=== PATIENT | male | born 1945 | race Caucasian/White ===

== ENCOUNTER → 2016-09-20 | Outpatient (CLI) | payer MEDICARE, OTHER ==
[~2016-09-20] MED LIST: MESA0.37 PO; OMEP20CA5 PO; TADA5TAB11 PO
[2016-09-20 12:29] LABS: Basophils # (auto) 0.1 uL; Basophils % (auto) 1.1 % (0.0-2.0); DEFINITIVE VIEW TRANSMISSION; Eosinophils # (auto) 0.1 uL; Eosinophils % (auto) 2.8 % (0.0-7.0); Hematocrit 40.3 % (41.0-53.0); Hemoglobin 12.6 g/dL (13.5-17.5); Lymphocytes % (auto) 20.2 % (10.0-50.0); Mean Corpuscular Hemoglobin 22.3 pg (28.0-32.0); Mean Corpuscular Hgb Conc. 31.4 g/dL (32.0-36.0); Mean Corpuscular Volume 71.2 fL (80.0-100.0); Mean Platelet Volume 9.4 fL (7.4-10.4); Monocytes # (auto) 0.5 uL; Monocytes % (auto) 9.4 % (0.0-12.0); Neutrophils # (auto) 3.4 uL; Neutrophils % (auto) 66.5 % (37.0-80.0); Platelet Count (auto) 276 10^3/uL (140-450); Red Cell Distribution Width 18.3 % (11.6-16.0); White Blood Cell 5.1 10^3/uL (4.4-10.8)
[2016-09-20 12:38] LABS: Urine Bilirubin Negative (Negative); Urine Blood Negative /uL (Negative); Urine Color Yellow (Yellow); Urine Ketone Negative (Negative); Urine Nitrite Negative (Negative); Urine Urobilinogen Normal (Negative)
[2016-09-20 12:42] LABS: Anisocytosis Slight; Hypochromia Moderate; Microcytosis Moderate; Platelet Estimate Adequate
[2016-09-20 12:51] LABS: Urine Glucose 4+ mg/dL (Normal)
[2016-09-20 13:51] LABS: Albumin 3.8 g/dL (3.4-5.0); BUN/Creatinine Ratio 12.2; Bilirubin, Direct 0.1 mg/dL (0-0.2); Bilirubin, Total 0.4 mg/dL (0.2-1.0); Potassium 4.4 mmol/L (3.5-5.1)
== END | disposition home or self-care (01) ==
LOC: LAB 08:22
PROVIDERS: ATTEND Internal Medicine Cardiovascular Disease
DX: I10 Essential (primary) hypertension (principal); E78.00 Pure hypercholesterolemia, unspecified; K74.1 Hepatic sclerosis; E11.9 Type 2 diabetes mellitus without complications; R97.20 Elevated prostate specific antigen [PSA]; R53.81 Other malaise; E03.9 Hypothyroidism, unspecified; D64.9 Anemia, unspecified; E55.9 Vitamin D deficiency, unspecified; N39.0 Urinary tract infection, site not specified
CPT/HCPCS: 36415; 80048; 80061; 80076; 81003; 82306; 83036; 84153; 84439; 84443; 85025

== ENCOUNTER → 2017-03-24 | Outpatient (CLI) | payer MEDICARE, OTHER ==
[~2017-03-24] VITALS: Ht 180.3 cm; Wt 110.2 kg
[~2017-03-24] MED LIST changes: -OMEP20CA5 PO; +OMEP20CA74 PO
== END | disposition home or self-care (01) ==
LOC: Rad HDHVI 07:52
PROVIDERS: ATTEND Internal Medicine Cardiovascular Disease
DX: I11.0 Hypertensive heart disease with heart failure (principal); I25.10 Atherosclerotic heart disease of native coronary artery without angina pectoris; I50.9 Heart failure, unspecified; E78.00 Pure hypercholesterolemia, unspecified; E11.9 Type 2 diabetes mellitus without complications
CPT/HCPCS: 36415; 78452; 83036; 93017; 96374; A9500

== ENCOUNTER → 2017-05-24 | Outpatient (CLI) | payer MEDICARE, OTHER | END | disposition home or self-care (01) | LOC: Rad HDHVI 12:24 | PROVIDERS: ATTEND Internal Medicine Cardiovascular Disease | DX: J40 Bronchitis, not specified as acute or chronic (principal) | CPT/HCPCS: 71046 ==

== ENCOUNTER → 2017-09-23 | Outpatient (CLI) | payer MEDICARE, OTHER | END | disposition home or self-care (01) | LOC: Rad HDHVI 10:49 | PROVIDERS: ATTEND Internal Medicine Cardiovascular Disease | DX: I35.1 Nonrheumatic aortic (valve) insufficiency (principal); E11.9 Type 2 diabetes mellitus without complications; E78.00 Pure hypercholesterolemia, unspecified; I11.0 Hypertensive heart disease with heart failure; I50.9 Heart failure, unspecified; E03.9 Hypothyroidism, unspecified | CPT/HCPCS: 93306 ==

== ENCOUNTER → 2017-10-06 | Outpatient (CLI) | payer MEDICARE, OTHER ==
[~2017-10-06] VITALS: Ht 180.3 cm; Wt 111.1 kg
[2017-10-06 11:52] LABS: Basophils # (auto) 0.1 uL; Eosinophils # (auto) 0.2 uL; Hemoglobin 11.8 g/dL (13.5-17.5); Lymphocytes % (auto) 22.3 % (10.0-50.0); Mean Corpuscular Hemoglobin 21.4 pg (28.0-32.0); Monocytes # (auto) 0.5 uL; Monocytes % (auto) 11.9 % (0.0-12.0); Neutrophils # (auto) 2.6 uL; White Blood Cell 4.3 10^3/uL (4.4-10.8)
[2017-10-06 11:54] LABS: Basophils % (auto) 1.2 % (0.0-2.0); Eosinophils % (auto) 3.6 % (0.0-7.0); Hematocrit 38.2 % (41.0-53.0); Mean Corpuscular Hgb Conc. 30.9 g/dL (32.0-36.0); Mean Corpuscular Volume 69.4 fL (80.0-100.0); Nucleated Red Blood Cells % 0.6 %; Platelet Count (auto) 258 10^3/uL (140-450); Red Blood Cells 5.51 10^6/uL (4.5-5.90); Red Cell Distribution Width 18.5 % (11.8-14.3); Urine Blood Negative /uL (Negative); Urine Specific Gravity 1.016 (1.001-1.035)
[2017-10-06 12:13] LABS: Free T4 (Free Thyroxine) 0.92 ng/dL (0.89-1.76); Prostate Specific Antigen 0.27 ng/mL (0.0-4.0)
[2017-10-06 13:46] LABS: Potassium 4.3 mmol/L (3.5-5.1)
[2017-10-06 13:49] LABS: Albumin 3.8 g/dL (3.4-5.0); BUN/Creatinine Ratio 14.2; Bilirubin, Total 0.6 mg/dL (0.2-1.0); Calcium 9.1 mg/dL (8.5-10.1); Total Protein 8.1 g/dL (6.4-8.2)
== END | disposition home or self-care (01) ==
LOC: Rad HDHVI 08:24
PROVIDERS: ATTEND Internal Medicine Cardiovascular Disease
DX: Z00.01 Encounter for general adult medical examination with abnormal findings (principal); E11.9 Type 2 diabetes mellitus without complications; K52.9 Noninfective gastroenteritis and colitis, unspecified; L30.9 Dermatitis, unspecified; C61 Malignant neoplasm of prostate; E29.1 Testicular hypofunction; E03.9 Hypothyroidism, unspecified; E55.9 Vitamin D deficiency, unspecified; D51.9 Vitamin B12 deficiency anemia, unspecified; N39.0 Urinary tract infection, site not specified; R07.89 Other chest pain; R06.02 Shortness of breath
CPT/HCPCS: 36415; 78452; 80053; 80061; 81003; 82306; 82607; 83036; 84153; 84403; 84439; 84443; 85025; 93017; 96374; A9500

== ENCOUNTER → 2018-01-18 | Outpatient (CLI) | payer MEDICARE, OTHER ==
[2018-01-18 16:34] LABS: Alanine Aminotransferase 52 U/L (16-61); Albumin 3.9 g/dL (3.4-5.0); Alkaline Phosphatase 96 U/L (45-117); Anion Gap 6 (5-15); Aspartate Aminotransferase 39 U/L (15-37); BUN/Creatinine Ratio 11.9; Bilirubin, Direct < 0.1 mg/dL (0-0.2); Bilirubin, Total 0.4 mg/dL (0.2-1.0); Blood Urea Nitrogen 13 mg/dL (7-18); Calcium 9.6 mg/dL (8.5-10.1); Carbon Dioxide 24 mmol/L (21-32); Chloride 108 mmol/L (98-107); Cholesterol 251 mg/dL (< 200); GFR African American 86 mL/min; GFR Non-African American 71 mL/min; Glucose 72 mg/dL (74-106); HDL Cholesterol 42 mg/dL (40-59); LDL Cholesterol 173 mg/dL (< 100); Potassium 4.3 mmol/L (3.5-5.1); Sodium 138 mmol/L (136-145); Total Protein 8.3 g/dL (6.4-8.2); Triglycerides 252 mg/dL (< 150)
== END | disposition home or self-care (01) ==
LOC: LAB 12:03
PROVIDERS: ATTEND Internal Medicine Cardiovascular Disease
DX: E78.5 Hyperlipidemia, unspecified (principal); I10 Essential (primary) hypertension; K74.1 Hepatic sclerosis; E11.9 Type 2 diabetes mellitus without complications
CPT/HCPCS: 36415; 80048; 80061; 80076; 83036

== ENCOUNTER → 2018-07-18 | Outpatient (CLI) | payer MEDICARE, OTHER ==
[2018-07-18 12:12] LABS: Lymphocytes # (auto) 1.3 uL; Monocytes # (auto) 0.5 uL
[2018-07-18 12:15] LABS: Basophils # (auto) 0.1 uL; Basophils % (auto) 1.1 % (0.0-2.0); Eosinophils # (auto) 0.1 uL; Eosinophils % (auto) 2.5 % (0.0-7.0); Hematocrit 48.2 % (41.0-53.0); Hemoglobin 15.2 g/dL (13.5-17.5); Lymphocytes % (auto) 21.4 % (10.0-50.0); Mean Corpuscular Hemoglobin 24.7 pg (28.0-32.0); Mean Corpuscular Hgb Conc. 31.6 g/dL (32.0-36.0); Mean Corpuscular Volume 78.2 fL (80.0-100.0); Monocytes % (auto) 8.8 % (0.0-12.0); Neutrophils % (auto) 66.2 % (37.0-80.0); Nucleated Red Blood Cells % 0.4 %; Platelet Count (auto) 213 10^3/uL (140-450); Red Blood Cells 6.16 10^6/uL (4.5-5.90); Red Cell Distribution Width 19.9 % (11.8-14.3)
[2018-07-18 12:23] LABS: Albumin 3.7 g/dL (3.4-5.0); BUN/Creatinine Ratio 15.8; Calcium 8.9 mg/dL (8.5-10.1); Potassium 4.2 mmol/L (3.5-5.1)
[2018-07-18 12:24] LABS: Urine Blood Negative /uL (Negative); Urine Specific Gravity 1.022 (1.001-1.035)
[2018-07-18 12:28] LABS: Bilirubin, Total 0.5 mg/dL (0.2-1.0)
[2018-07-18 19:11] LABS: Prostate Specific Antigen 0.28 ng/mL (0.0-4.0)
== END | disposition home or self-care (01) ==
LOC: LAB 09:19
PROVIDERS: ATTEND Internal Medicine Cardiovascular Disease
DX: E55.9 Vitamin D deficiency, unspecified (principal); E03.9 Hypothyroidism, unspecified; E11.9 Type 2 diabetes mellitus without complications; E29.1 Testicular hypofunction; C61 Malignant neoplasm of prostate; D51.9 Vitamin B12 deficiency anemia, unspecified; N39.0 Urinary tract infection, site not specified
CPT/HCPCS: 36415; 80053; 80061; 81003; 82306; 82607; 83036; 84153; 84403; 84439; 84443; 85025

== ENCOUNTER → 2019-02-02 | Outpatient (CLI) | payer MEDICARE, BC | END | disposition home or self-care (01) | LOC: LAB 08:59 | PROVIDERS: ATTEND Internal Medicine Cardiovascular Disease | DX: E29.1 Testicular hypofunction (principal); E11.9 Type 2 diabetes mellitus without complications | CPT/HCPCS: 36415; 84403 ==

== ENCOUNTER → 2019-06-20 | Outpatient (CLI) | payer MEDICARE, BC ==
[2019-06-20 12:25] LABS: Basophils # (auto) 0.1 uL; Eosinophils # (auto) 0.1 uL; Lymphocytes # (auto) 1.3 uL; Monocytes # (auto) 0.7 uL
[2019-06-20 12:28] LABS: Basophils % (auto) 1.1 % (0.0-2.0); Hematocrit 36.8 % (41.0-53.0); Lymphocytes % (auto) 20.3 % (10.0-50.0); Mean Corpuscular Hemoglobin 19.6 pg (28.0-32.0); Mean Corpuscular Hgb Conc. 29.9 g/dL (32.0-36.0); Mean Corpuscular Volume 65.7 fL (80.0-100.0); Monocytes % (auto) 10.8 % (0.0-12.0); Neutrophils # (auto) 4.3 uL; Neutrophils % (auto) 65.8 % (37.0-80.0); Nucleated Red Blood Cells % 0.1 %; Platelet Count (auto) 325 10^3/uL (140-450); Red Blood Cells 5.59 10^6/uL (4.5-5.90); Red Cell Distribution Width 19.4 % (11.8-14.3); White Blood Cell 6.6 10^3/uL (4.4-10.8)
[2019-06-20 12:42] LABS: INR 1.12 (0.9-1.15); Partial Thromboplastin Time 25.5 sec (23.64-32.05)
[2019-06-20 12:55] LABS: Urine Blood Negative /uL (Negative); Urine Specific Gravity 1.033 (1.001-1.035)
[2019-06-20 13:20] LABS: BUN/Creatinine Ratio 10.7; Calcium 9.6 mg/dL (8.5-10.1)
== END | disposition home or self-care (01) ==
LOC: Rad HDHVI 08:57
PROVIDERS: ATTEND Internal Medicine Cardiovascular Disease
DX: Z01.812 Encounter for preprocedural laboratory examination (principal); N39.0 Urinary tract infection, site not specified; J98.4 Other disorders of lung; M47.814 Spondylosis without myelopathy or radiculopathy, thoracic region; R79.1 Abnormal coagulation profile; K51.90 Ulcerative colitis, unspecified, without complications; Z79.899 Other long term (current) drug therapy
CPT/HCPCS: 36415; 71046; 80048; 81003; 85025; 85610; 85730; 87086

== ENCOUNTER → 2019-07-30 | Outpatient (CLI) | payer MEDICARE, OTHER ==
[~2019-07-30] MED LIST changes: +CLOP75TA28 PO; +PANT40TA2 PO; +ROSU5TAB5 PO
== END | disposition home or self-care (01) ==
LOC: LAB 11:47
PROVIDERS: ATTEND Internal Medicine Cardiovascular Disease
DX: R94.4 Abnormal results of kidney function studies (principal)
CPT/HCPCS: 36415; 82565

== ENCOUNTER → 2019-08-01 | Outpatient (CLI) | payer MEDICARE, BC ==
[~2019-08-01] MED LIST changes: +IOHEXOL 350 MG/ML 100ML IJ ONE; +READI-CAT 2 (BARIUM SULF)(VANILLA SMOOTHIE) 450ML ONE
[2019-08-01 13:00] VITALS: BP 112/71
== END | disposition home or self-care (01) ==
LOC: Rad HDHVI 12:49
PROVIDERS: ATTEND Internal Medicine Cardiovascular Disease
DX: K43.5 Parastomal hernia without obstruction or gangrene (principal); K40.20 Bilateral inguinal hernia, without obstruction or gangrene, not specified as recurrent; I70.0 Atherosclerosis of aorta; N28.1 Cyst of kidney, acquired; E11.9 Type 2 diabetes mellitus without complications; M81.0 Age-related osteoporosis without current pathological fracture; M19.90 Unspecified osteoarthritis, unspecified site; G47.30 Sleep apnea, unspecified
CPT/HCPCS: 74177; 93306; G0463; Q9967

== ENCOUNTER → 2019-08-08 | Outpatient (CLI) | payer MEDICARE, BC ==
[~2019-08-08] VITALS: Ht 180.3 cm; Wt 91.6 kg
[~2019-08-08] MED LIST changes: +ADENOSINE 77 MG in GIVE UN-DILUTED 0 ML IV ONE; +ADENOSINE 90 MG/30 ML INJ IV ONE; -IOHEXOL 350 MG/ML 100ML IJ ONE; -READI-CAT 2 (BARIUM SULF)(VANILLA SMOOTHIE) 450ML ONE
== END | disposition home or self-care (01) ==
LOC: Rad HDHVI 09:32
PROVIDERS: ATTEND Internal Medicine Cardiovascular Disease
DX: I25.10 Atherosclerotic heart disease of native coronary artery without angina pectoris (principal); E11.9 Type 2 diabetes mellitus without complications; E78.00 Pure hypercholesterolemia, unspecified; M81.0 Age-related osteoporosis without current pathological fracture; M19.90 Unspecified osteoarthritis, unspecified site; G47.30 Sleep apnea, unspecified; Z87.891 Personal history of nicotine dependence
CPT/HCPCS: 78452; 93005; 96374; 96375; A9500; J0153

== ENCOUNTER → 2019-08-27 | Outpatient (CLI) | payer MEDICARE, BC ==
[~2019-08-27] MED LIST changes: -ADENOSINE 77 MG in GIVE UN-DILUTED 0 ML IV ONE; -ADENOSINE 90 MG/30 ML INJ IV ONE
[2019-08-27 15:59] LABS: Basophils # (auto) 0.1 10 ^3/uL (0-0.2); Eosinophils # (auto) 0.2 10 ^3/uL (0-0.8); Lymphocytes # (auto) 1.2 10 ^3/uL (0.4-5.4); Monocytes # (auto) 0.6 10 ^3/uL (0-1.3)
[2019-08-27 16:01] LABS: Eosinophils % (auto) 2.8 % (0.0-7.0); Hematocrit 32.8 % (41.0-53.0); Hemoglobin 9.7 g/dL (13.5-17.5); Lymphocytes % (auto) 17.9 % (10.0-50.0); Mean Corpuscular Hemoglobin 18.9 pg (28.0-32.0); Mean Corpuscular Hgb Conc. 29.5 g/dL (32.0-36.0); Monocytes % (auto) 9.3 % (0.0-12.0); Neutrophils # (auto) 4.6 10 ^3/uL (1.6-8.6); Nucleated Red Blood Cells % 0.2 %; Platelet Count (auto) 319 10^3/uL (140-450); Red Blood Cells 5.13 10^6/uL (4.5-5.90); Red Cell Distribution Width 20.9 % (11.8-14.3); White Blood Cell 6.6 10^3/uL (4.4-10.8)
[2019-08-27 16:07] LABS: Albumin 3.6 g/dL (3.4-5.0); Potassium 4.2 mmol/L (3.5-5.1)
[2019-08-27 16:11] LABS: BUN/Creatinine Ratio 14.8; Bilirubin, Total 0.3 mg/dL (0.2-1.0); Total Protein 8.4 g/dL (6.4-8.2)
== END | disposition home or self-care (01) ==
LOC: LAB 11:48
PROVIDERS: ATTEND Internal Medicine Cardiovascular Disease
DX: C19 Malignant neoplasm of rectosigmoid junction (principal)
CPT/HCPCS: 36415; 80053; 82378; 83615; 85025

== ENCOUNTER 2020-02-23 16:00 | Inpatient (IN) | payer MEDICARE, BC ==
[~2020-02-23] VITALS: Ht 180.3 cm; Wt 99.7 kg
[2020-02-23 17:00] LABS: Basophils # (auto) 0.1 10 ^3/uL (0-0.2); Basophils % (auto) 0.7 % (0.0-2.0); Eosinophils # (auto) 0.1 10 ^3/uL (0-0.8); Eosinophils % (auto) 1.5 % (0.0-7.0); Hematocrit 44.4 % (41.0-53.0); Hemoglobin 14.5 g/dL (13.5-17.5); Lymphocytes # (auto) 0.8 10 ^3/uL (0.4-5.4); Lymphocytes % (auto) 10.8 % (10.0-50.0); Mean Corpuscular Hemoglobin 28.2 pg (28.0-32.0); Mean Corpuscular Hgb Conc. 32.6 g/dL (32.0-36.0); Mean Corpuscular Volume 86.7 fL (80.0-100.0); Monocytes # (auto) 1.2 10 ^3/uL (0-1.3); Monocytes % (auto) 15.7 % (0.0-12.0); Neutrophils # (auto) 5.4 10 ^3/uL (1.6-8.6); Neutrophils % (auto) 71.3 % (37.0-80.0); Nucleated Red Blood Cells % 0.1 %; Platelet Count (auto) 131 10^3/uL (140-450); Red Blood Cells 5.12 10^6/uL (4.5-5.90); Red Cell Distribution Width 24.4 % (11.8-14.3); White Blood Cell 7.6 10^3/uL (4.4-10.8)
[2020-02-23 17:14] LABS: Albumin 3.2 g/dL (3.4-5.0); Amylase 67 U/L (25-115); Anion Gap 6 (5-15); Blood Urea Nitrogen 13 mg/dL (7-18); Calcium 9.4 mg/dL (8.5-10.1); Carbon Dioxide 26 mmol/L (21-32); Chloride 106 mmol/L (98-107); Glucose 181 mg/dL (74-106); Lipase 285 U/L (73-393); Magnesium 2.6 mg/dL (1.6-2.6); Potassium 4.5 mmol/L (3.5-5.1); Sodium 138 mmol/L (136-145)
[2020-02-23 17:17] LABS: INR 1.04 (0.9-1.15); Partial Thromboplastin Time 24.5 sec (23.0-31.2)
[2020-02-23 17:20] LABS: Alanine Aminotransferase 89 U/L (16-61); Alkaline Phosphatase 289 U/L (45-117); Aspartate Aminotransferase 116 U/L (15-37); BUN/Creatinine Ratio 14.3; Bilirubin, Total 0.6 mg/dL (0.2-1.0); GFR African American 105 mL/min; GFR Non-African American 87 mL/min
[2020-02-23] MEDS ORDERED: SODIUM CHLORIDE 0.9% 1,000 ML IV ONE (17:20)
[2020-02-23] MEDS ORDERED: SODIUM CHLORIDE 0.9% 1,000 ML IVB ONE (17:45)
[2020-02-23] MEDS ORDERED: IOHEXOL 350 MG/ML 100ML IJ ONE (18:04)
[2020-02-23] MEDS ORDERED: metroNIDAZOLE 500MG/100ML 100 ML IV ONE (20:00)
[2020-02-23] MEDS ORDERED: ONDANSETRON HCL 4 MG/2 ML VIAL IV ONE (20:00)
[2020-02-23] MEDS ORDERED: MORPHINE SULF INJ 2 MG/ML SYRINGE 1ML IV ONE (20:00)
[2020-02-23 20:05] LABS: Urine Bacteria NONE SEEN /hpf (None Seen); Urine Blood Negative /uL (Negative); Urine Mucus FEW (None Seen); Urine WBC 2 /hpf (0 - 3)
[2020-02-23 20:20] LABS: Urine Specific Gravity > 0.050 (1.001-1.035)
[2020-02-23] MEDS ORDERED: HYDROmorphone HCL 2 MG/ML VL IV PRN (21:15)
[2020-02-23] MEDS: PIPERACILLIN-TAZO 4.5GM 100 ML IV SCH (22:32)
--- NOTE | 2020-02-23 23:13 | NUR ---
Telemetry admit from ER STEPHANIE TORO admitted to Telemetry unit. Patient oriented to EMI KELLOGG, RN primary RN, unit, room, bed, and unit policies regarding patient care and visiting hours. Patient now on continuous telemetry monitoring, tele box #[id number] and telemetry reading on arrival to unit is 83. Patient weighed by bedscale and encouraged to call if they need something. All questions and concerns addressed, patient verbalized understanding. Will continue to monitor.
[2020-02-23 23:44] VITALS: BP 111/66
[2020-02-24 01:20] VITALS: BP 111/66
[2020-02-24] MEDS ORDERED: CLOP75TA28 PO (01:20)
[2020-02-24] MEDS ORDERED: CAPE1TAB11 PO (01:20)
[2020-02-24] MEDS ORDERED: ROSU1TAB12 PO (01:20)
[2020-02-24 05:09] VITALS: BP 101/68
[2020-02-24 06:39] LABS: Basophils # (auto) 0 10 ^3/uL (0-0.2); Basophils % (auto) 0.7 % (0.0-2.0); Eosinophils # (auto) 0.2 10 ^3/uL (0-0.8); Eosinophils % (auto) 2.2 % (0.0-7.0); Hematocrit 41.2 % (41.0-53.0); Hemoglobin 13.6 g/dL (13.5-17.5); Lymphocytes # (auto) 0.7 10 ^3/uL (0.4-5.4); Lymphocytes % (auto) 10.8 % (10.0-50.0); Mean Corpuscular Hemoglobin 28.6 pg (28.0-32.0); Mean Corpuscular Volume 86.7 fL (80.0-100.0); Monocytes # (auto) 1.1 10 ^3/uL (0-1.3); Monocytes % (auto) 15.6 % (0.0-12.0); Neutrophils # (auto) 4.9 10 ^3/uL (1.6-8.6); Neutrophils % (auto) 70.7 % (37.0-80.0); Platelet Count (auto) 123 10^3/uL (140-450); Red Blood Cells 4.75 10^6/uL (4.5-5.90); White Blood Cell 6.9 10^3/uL (4.4-10.8)
[2020-02-24] MEDS: PIPERACILLIN-TAZO 4.5GM 100 ML IV SCH ×3 (06:45→22:52)
[2020-02-24 06:59] LABS: Potassium 4.4 mmol/L (3.5-5.1)
[2020-02-24 07:12] LABS: Albumin 2.8 g/dL (3.4-5.0); BUN/Creatinine Ratio 12.8; Bilirubin, Total 0.8 mg/dL (0.2-1.0); Calcium 9.1 mg/dL (8.5-10.1); Total Protein 6.8 g/dL (6.4-8.2)
[2020-02-24 09:00] VITALS: BP 93/51
[2020-02-24] MEDS: PANTOPRAZOLE 40 MG TAB PO SCH (09:30)
[2020-02-24 13:00] VITALS: BP 103/50
--- NOTE | 2020-02-24 14:45 | NUR ---
DOCTOR MAHENDRA TRAVISING PER OKAY TO ADVANCE PATIENTS DIET.
[2020-02-24 17:00] VITALS: BP 94/60
[2020-02-24] MEDS ORDERED: HYDROcodone-ACET 10/325MG TAB PO PRN (19:30)
[2020-02-24] MEDS: CAPECITABINE 500 MG TAB PO SCH (19:40)
--- NOTE | 2020-02-24 19:40 | NUR ---
Opening Shift Note Received report and assumed care of patient. Patient is awake and alert. No signs or symptoms of distress noted. Instructed patient on plan of care and to call for assistance as needed. Will continue to monitor.
[2020-02-24 23:23] VITALS: BP 122/74
[2020-02-25 05:16] VITALS: BP 99/63
[2020-02-25] MEDS: PIPERACILLIN-TAZO 4.5GM 100 ML IV SCH ×2 (06:11→18:10)
--- NOTE | 2020-02-25 07:30 | NUR ---
STATUS SITTING IN BED AWAKE A&O WITH NO C/O PAIN BED IN LOW POSITION AND CALL LIGHT IN REACH. TELE IN PLACE AND MONITORED WILL CONTINUE TO MONITOR *WILL MEDICATE PER MAR WITH BREAKFAST TRAY THAT WAS JUST DELIVERED.
[2020-02-25] MEDS: CAPECITABINE 500 MG TAB PO SCH ×2 (08:57→18:07)
[2020-02-25 09:00] VITALS: BP 95/60
[2020-02-25] MEDS: PANTOPRAZOLE 40 MG TAB PO SCH (10:21)
[2020-02-25 13:00] VITALS: BP 104/68
--- NOTE | 2020-02-25 13:31 | NUR ---
DR DE LA VEGA AT BEDSIDE
[2020-02-25 17:00] VITALS: BP 103/84
[2020-02-25 22:00] VITALS: BP 113/73
[2020-02-26] MEDS: PIPERACILLIN-TAZO 4.5GM 100 ML IV SCH ×3 (02:19→18:14)
[2020-02-26 05:25] VITALS: BP 105/69
[2020-02-26 08:00] VITALS: BP 105/69
[2020-02-26] MEDS: CAPECITABINE 500 MG TAB PO SCH ×2 (08:10→18:15)
--- NOTE | 2020-02-26 08:35 | NUR ---
Opening Shift Note Assumed care of patient, awake, alert lying comfortably in bed upon entering he room. No S/S of distress/SOB or pain. Instructed on POC and to call for assist PRN. Patient requested to have Dr. Mcgarry called to give an update on the patient's status and possible D/C. Bed is in lowest position and the call light is within reach of the patient. Will continue to monitor for changes Q1hr and PRN.
[2020-02-26 09:00] VITALS: BP 122/76
[2020-02-26] MEDS: PANTOPRAZOLE 40 MG TAB PO SCH (09:38)
--- NOTE | 2020-02-26 11:00 | NUR ---
Dr. Mcgarry called Dr. Mcgarry called and a message was left with his office. Awaiting a call back.
--- NOTE | 2020-02-26 12:21 | NUR ---
Dr. Tavares at bedside Dr. Tavares at bedside discussing the POC with the patient. Will carry out all associated orders.
[2020-02-26] MEDS ORDERED: GOLYTELY 4L KIT PO ONE (12:30)
[2020-02-26 13:00] VITALS: BP 122/77
--- NOTE | 2020-02-26 14:30 | NUR ---
Shruti started Bowel prep initiated. Patient educated on drinking instructions and verbalized understanding of the process. Will continue to monitor.
[2020-02-26 16:49] VITALS: BP 120/76
--- NOTE | 2020-02-26 20:45 | NUR ---
IV removal IV DC'd Rt FA with clean sterile technique, catheter fully intact. Pressure dressing applied to site. Patient tolerated well. NOTE: IV SITE LEAKING
--- NOTE | 2020-02-26 21:00 | NUR ---
IV insertion IV access obtained, via clean sterile technique by inserting 20 gauge catheter at RT AC after 1 attempt. IV secured properly. No trauma to site. Patient tolerated well.
[2020-02-26 22:00] VITALS: BP 115/70
[2020-02-27] MEDS: PIPERACILLIN-TAZO 4.5GM 100 ML IV SCH ×3 (02:20→17:55)
[2020-02-27 05:00] VITALS: BP 102/62
--- NOTE | 2020-02-27 05:49 | NUR ---
GOLYTELY PATIENT INSTRUCTED TO FINISH LAST 1/3 OF GOLYTELY OVER 2 HOURS AND MAGNESIUM CITRATE BOTTLE. PATIENT VERBALIZED UNDERSTANDING. MEDICATION LEFT AT BEDSIDE. PATIENT REPORTS CLEAR TO YELLOW LIQUID STOOLS IN COLOSTOMY BAG.
[2020-02-27] MEDS ORDERED: GOLYTELY 4L KIT PO ONE (06:00)
[2020-02-27] MEDS ORDERED: MAGNESIUM CITRATE SOLUTION 300 ML BTL PO ONE (06:00)
[2020-02-27 06:04] LABS: INR 1.13 (0.9-1.15); Partial Thromboplastin Time 24.8 sec (23.0-31.2)
[2020-02-27 06:05] LABS: Hematocrit 39.4 % (41.0-53.0); Hemoglobin 13.2 g/dL (13.5-17.5); Mean Corpuscular Hemoglobin 29.1 pg (28.0-32.0); Mean Corpuscular Hgb Conc. 33.5 g/dL (32.0-36.0); Mean Corpuscular Volume 86.7 fL (80.0-100.0); Platelet Count (auto) 115 10^3/uL (140-450); Red Blood Cells 4.55 10^6/uL (4.5-5.90); White Blood Cell 5.3 10^3/uL (4.4-10.8)
[2020-02-27 06:10] LABS: Red Cell Distribution Width 23.5 % (11.8-14.3)
[2020-02-27 06:11] LABS: Band Neutrophils % (manual) 0; Basophils % (manual) 0 (0.0-2.0); Blast Cells 0; Metamyelocytes % 0; Myelocytes % 0; Promyelocytes % 0; Reactive Lymphocytes 0
[2020-02-27 06:55] LABS: Eosinophils % (manual) 3 (0-7); Lymphocytes % (manual) 23 (10.0-50.0); Monocytes % (manual) 10 (0-12)
[2020-02-27] MEDS ORDERED: SODIUM CHLORIDE LOCK 10 ML ONE (07:50)
[2020-02-27] MEDS ORDERED: diphenhdrAMINE HCL 50 MG/1 ML VL ONE (07:51)
[2020-02-27] MEDS: CAPECITABINE 500 MG TAB PO SCH ×2 (08:00→17:32)
--- NOTE | 2020-02-27 08:00 | NUR ---
Received pt out of bed, pt finished the golytely and will take the magnesium citrate now, pt denies any pain at this time, pt reports clear yellow stool at this time, will continue to monitor pt. Pt refused the chemo medication schedule, pt stated that Dr. Castaneda d/c it yesterday. Will inform and clarify with doctor.
[2020-02-27 09:00] VITALS: BP 107/78
[2020-02-27] MEDS: PANTOPRAZOLE 40 MG TAB PO SCH (10:00)
--- NOTE | 2020-02-27 12:04 | NUR ---
Nutrition Assessment Note please see attached link for complete assessment [employer] needs ABW 89 [id number] kcals (23-25 kcal/kgABW), Est Protein needs: 89-97 gms/day (1.0-1.1 gm/kgABW). Will continue to monitor and reassess prn. Addendum: 02/27/20 at [address] Amended: Links added.
--- NOTE | 2020-02-27 12:30 | NUR ---
As per mathematics technician, the radiologist has reviewed pt's order and chart and will do the CT guided liver biopsy tomorrow.
[2020-02-27 13:00] VITALS: BP 113/78
--- NOTE | 2020-02-27 15:00 | NUR ---
Pt taken to pre-op for colonoscopy.
[2020-02-27] MEDS: fentaNYL CITRATE 100 MCG/2 ML VL ONE ×2 (16:05→16:07)
[2020-02-27] MEDS: MIDAZOLAM HCL 5 MG/ML-1ML VIAL ONE ×2 (16:05→16:07)
--- NOTE | 2020-02-27 16:50 | NUR ---
Dr. Tavares at the unit, as per doctor pt can have full liquid diet, transverse and descending colon biopsy taken,
--- NOTE | 2020-02-27 17:33 | NUR ---
Pt refused to take the capecictabine, pt stated that Dr. Castaneda told him that he will be trying something different and did not have to take the chemo dose for today, pt will be off the chemo drug for a week.
--- NOTE | 2020-02-27 20:00 | NUR ---
Opening Shift Note Assumed care of patient, awake and alert x4. Patient denies pain or shortness of breath at this time. No sign/symptoms of distress noted or verbalized at this time. Instructed on plan of care and encouraged patient to call for assistance as needed, patient verbalized understanding. Bed is locked in lowest position, side rails x 2 are up, call light is within reach, and bed alarm is on.
[2020-02-27 22:00] VITALS: BP 96/56
[2020-02-28] VITALS (14 sets, daily range): BP systolic 94–130; BP diastolic 45–77
[2020-02-28] MEDS: PIPERACILLIN-TAZO 4.5GM 100 ML IV SCH ×3 (02:05→18:38)
--- NOTE | 2020-02-28 07:30 | NUR ---
Opening Shift Note Assumed care of patient, awake and alert. No S/S of distress/SOB or pain. Instructed on POC and to call for assist PRN, will continue to monitor for changes Q1hr and PRN. Bed is locked and in lowest position. Call light within reach.
[2020-02-28] MEDS: CAPECITABINE 500 MG TAB PO SCH ×2 (08:00→18:00)
--- NOTE | 2020-02-28 08:00 | NUR ---
PER PATIENT HE IS DECLINING MEDICATION CAPECITABINE 500 MG 1 TAB PO DUE TO ONCOLOGIST ORDER. PATIENT LAST PO OF CAPECITABINE CHEMO MED WAS 02/26/20. WILL PAGE DR. DE LA VEGA TO NOTIFY OF PATIENTS DECLINE TO TAKE MEDICATION. WILL AWAIT RETURN CALL.
[2020-02-28] MEDS: PANTOPRAZOLE 40 MG TAB PO SCH (09:11)
--- NOTE | 2020-02-28 10:03 | NUR ---
PATIENT IS SCHEDULED FOR CT GUIDED LIVER BIOPSY FOR TODAY. PATIENT CONSENTED AT BEDSIDE PER PROCESSING TECHNOLOGIST LUIS DANIEL. WILL AWAIT TO TRANSFER PATIENT. WILL CONTINUE TO MONITOR PATIENT.
[2020-02-28] MEDS ORDERED: MIDAZOLAM HCL 1MG/1ML-2 ML VIAL IV ONE (10:45)
[2020-02-28] MEDS ORDERED: fentaNYL CITRATE 100 MCG/2 ML VL IV ONE (10:45)
[2020-02-28] MEDS ORDERED: LIDOCAINE 2%HCL (LOCAL ANESTH.) INJ 20ML MDV ONE (12:17)
--- NOTE | 2020-02-28 13:10 | NUR ---
PATIENT RECEIVED IN C.T. PER BED ON TEL MONITOR FOR LIVER BIOPSY. SEE MODERATE SEDATION RECORD ON CHART. PATIENT UNDERWENT LIVER BIOPSY PER DR.B. IVORY WITH MODERATE SEDATION AND LOCAL ANESTHETIC. PATIENT ON CONTINUAL CARDIAC AND SAO2 MONITORING. PATIENT TOLERATED PROCEDURE WELL. BANDAID APPLIED TO RUQ ABD. WITH MIN BLEEDING NOTED AT SITE. LIVER BIOPSY TAKEN TO LAB FOR PATHOLOGY. PATIENT RETURNED TO ROOM AT 1415 IN STABLE CONDITION. SEE MAR FOR MEDS GIVEN. SEE FLOWSHEET FOR VITAL SIGNS.
[2020-02-29] MEDS: PIPERACILLIN-TAZO 4.5GM 100 ML IV SCH ×2 (02:07→09:47)
[2020-02-29 05:00] VITALS: BP 103/67
[2020-02-29] MEDS: CAPECITABINE 500 MG TAB PO SCH (08:00)
--- NOTE | 2020-02-29 08:00 | NUR ---
PER PATIENT HE IS DECLINING MEDICATION CAPECITABINE 500 MG 1 TAB PO DUE TO ONCOLOGIST ORDER. PATIENT LAST PO OF CAPECITABINE CHEMO MED WAS 02/26/20. WILL PAGE DR. CALLES TO NOTIFY OF PATIENTS DECLINE TO TAKE MEDICATION. WILL AWAIT RETURN CALL.
[2020-02-29 09:00] VITALS: BP 97/62
--- NOTE | 2020-02-29 09:30 | NUR ---
DR. DE LA VEGA AT BEDSIDE TO DISCUSS POC. PATIENT WILL BE DISCHARGED TODAY. DR. DE LA VEGA STATED ZOSYN CAN BE NON-ADMINISTERED DUE TO DISCHARGE ORDER. WILL AWAIT ORDERS AND CARRY THEM OUT. WILL CONTINUE TO MONITOR PATIENT.
[2020-02-29] MEDS: PANTOPRAZOLE 40 MG TAB PO SCH (09:47)
--- NOTE | 2020-02-29 12:00 | NUR ---
assessment Patient has no post discharge needs identified at this time. Addendum: 02/29/20 at 1533 by Chanda VIRAMONTES Amended: Links added.
[2020-02-29 12:08] VITALS: BP 97/62
[2020-02-29 13:00] VITALS: BP 98/61
--- NOTE | 2020-02-29 13:30 | NUR ---
[facility] CALLED REGARDING LEVAQUIN [address] DE LA VEGA. PATIENT PRESCRIPTION WILL BE FILLED AND PICKED UP WHEN DISCHARGED.
--- NOTE | 2020-02-29 13:45 | NUR ---
DISCHARGE PATIENT GIVEN DISCHARGE PAPERWORK, ALL QUESTIONS AND CONCERNS ANSWERED. PATIENT TELEMONITOR NUMBER [id number] REMOVED AND SENT TO ICU HEART LAB. PATIENT PRESCRIPTION CALLED TO [facility] PATIENT WILL [facility]. PATIENT AWAITING [facility] [facility] FROM [facility]. IV removal IV DC'd with clean sterile technique, catheter fully intact. Pressure dressing applied to site. Patient tolerated well.
== END 2020-02-29 13:53 | disposition home or self-care (01) | DRG 392 ==
LOC: EDBD 16:00 → ER 16:00 → TELE 16:01 → TELE-WESTW 23:10
PROVIDERS: ADMIT Internal Medicine Cardiovascular Disease; ATTEND Internal Medicine Cardiovascular Disease
PROC: 0DDL8ZX Extraction of Transverse Colon, Via Natural or Artificial Opening Endoscopic, Diagnostic (ICD-10-PCS; 2020-02-27)
PROC: 0DDM8ZX Extraction of Descending Colon, Via Natural or Artificial Opening Endoscopic, Diagnostic (ICD-10-PCS; principal; 2020-02-27 16:05)
PROC: 0FB03ZX Excision of Liver, Percutaneous Approach, Diagnostic (ICD-10-PCS; 2020-02-28)
DX: A09 Infectious gastroenteritis and colitis, unspecified (principal); C18.9 Malignant neoplasm of colon, unspecified; C78.7 Secondary malignant neoplasm of liver and intrahepatic bile duct; K51.90 Ulcerative colitis, unspecified, without complications; K80.20 Calculus of gallbladder without cholecystitis without obstruction; D69.6 Thrombocytopenia, unspecified; K21.9 Gastro-esophageal reflux disease without esophagitis; I10 Essential (primary) hypertension; E78.5 Hyperlipidemia, unspecified; I25.10 Atherosclerotic heart disease of native coronary artery without angina pectoris; N40.0 Benign prostatic hyperplasia without lower urinary tract symptoms; G62.9 Polyneuropathy, unspecified; K57.30 Diverticulosis of large intestine without perforation or abscess without bleeding; Z80.1 Family history of malignant neoplasm of trachea, bronchus and lung; Z82.49 Family history of ischemic heart disease and other diseases of the circulatory system; Z83.3 Family history of diabetes mellitus; Z85.038 Personal history of other malignant neoplasm of large intestine; Z87.891 Personal history of nicotine dependence; Z95.5 Presence of coronary angioplasty implant and graft; R73.03 Prediabetes; K63.5 Polyp of colon
CPT/HCPCS: 10022; 36415; 71045; 71275; 74150; 74178; 76770; 77012; 80053; 81001; 82150; 82378; 83036; 83690; 83735; 83880; 84484; 85007; 85025; 85027; 85610; 85730; 86850; 86900; 86901; 93005; G0378; J2250; J2405; J2543; J3490

== ENCOUNTER 2020-05-07 21:31 | Inpatient (IN) | payer MEDICARE, BC ==
[~2020-05-07] VITALS: Ht 180.3 cm; Wt 81.6 kg
[~2020-05-07 21:31] MED LIST changes: +CAPE1TAB11 PO; -MESA0.37 PO; -OMEP20CA74 PO; -PANT40TA2 PO; +ROSU1TAB12 PO; -TADA5TAB11 PO
[2020-05-07 23:06] LABS: Basophils # (auto) 0 10 ^3/uL (0-0.2); Basophils % (auto) 0.6 % (0.0-2.0); Eosinophils # (auto) 0.1 10 ^3/uL (0-0.8); Eosinophils % (auto) 1.3 % (0.0-7.0); Hematocrit 44.6 % (41.0-53.0); Hemoglobin 14.6 g/dL (13.5-17.5); Lymphocytes # (auto) 0.9 10 ^3/uL (0.4-5.4); Lymphocytes % (auto) 19.7 % (10.0-50.0); Mean Corpuscular Hemoglobin 28.3 pg (28.0-32.0); Mean Corpuscular Hgb Conc. 32.8 g/dL (32.0-36.0); Mean Corpuscular Volume 86.4 fL (80.0-100.0); Monocytes # (auto) 0.8 10 ^3/uL (0-1.3); Monocytes % (auto) 17.6 % (0.0-12.0); Neutrophils # (auto) 2.9 10 ^3/uL (1.6-8.6); Neutrophils % (auto) 60.8 % (37.0-80.0); Nucleated Red Blood Cells % 0.2 %; Platelet Count (auto) 369 10^3/uL (140-450); Red Blood Cells 5.16 10^6/uL (4.5-5.90); Red Cell Distribution Width 15.6 % (11.8-14.3); White Blood Cell 4.8 10^3/uL (4.4-10.8)
[2020-05-07 23:20] LABS: Albumin 3.3 g/dL (3.4-5.0); Calcium 9.7 mg/dL (8.5-10.1); Potassium 4.6 mmol/L (3.5-5.1)
[2020-05-07 23:23] LABS: BUN/Creatinine Ratio 10.8
[2020-05-07 23:26] LABS: Bilirubin, Total 0.5 mg/dL (0.2-1.0); Total Protein 8.6 g/dL (6.4-8.2)
[2020-05-08] MEDS ORDERED: KETOROLAC TROMETH 30 MG/ML 1ML VIAL IV ONE (00:15)
[2020-05-08] MEDS ORDERED: IOHEXOL 350 MG/ML 100ML IJ ONE (00:25)
[2020-05-08] MEDS ORDERED: MORPHINE SULFATE 4 MG/ML SYR/VIAL IV ONE (09:15)
[2020-05-08] MEDS ORDERED: ONDANSETRON HCL 4 MG/2 ML VIAL IV ONE (09:15)
[2020-05-08] MEDS ORDERED: NITROGLYCERIN 0.4 MG SL TAB SL PRN (11:00)
[2020-05-08] MEDS ORDERED: MORPHINE SULF INJ 2 MG/ML SYRINGE 1ML IV PRN (11:00)
[2020-05-08] MEDS ORDERED: TPN PER PHARMACY 0 ML IV SCH (11:00)
[2020-05-08] MEDS ORDERED: PANTOPRAZOLE 40mg/50ML NS AE 50 ML IV ONE (11:00)
[2020-05-08] MEDS ORDERED: DEXTROSE (50%) 50ML SYRG IV PRN (11:00)
[2020-05-08] MEDS ORDERED: HYDROmorphone HCL 2 MG/ML VL IV SCH (11:00)
[2020-05-08] MEDS ORDERED: InsuLIN REG 1unit/0.01ml Soln (100units/ml) SC SCH (12:00)
[2020-05-08] MEDS ORDERED: ACCU-CHEK COMFORT CURVE STRIP VI SCH (12:00)
[2020-05-08 12:05] LABS: Albumin 3.3 g/dL (3.4-5.0); Calcium 9.7 mg/dL (8.5-10.1); Magnesium 2.2 mg/dL (1.6-2.6); Potassium 4.8 mmol/L (3.5-5.1)
[2020-05-08 12:10] LABS: BUN/Creatinine Ratio 11.3; Bilirubin, Total 0.8 mg/dL (0.2-1.0); Phosphorus 2.9 mg/dL (2.5-4.90); Total Protein 8.8 g/dL (6.4-8.2)
[2020-05-08] MEDS: ONDANSETRON HCL 4 MG/2 ML VIAL IV SCH ×2 (12:25→19:43)
[2020-05-08 18:58] VITALS: BP 108/70
[2020-05-08 19:52] LABS: INR 1.14 (0.9-1.15); Partial Thromboplastin Time 25.5 sec (23.0-31.2)
[2020-05-08] MEDS ORDERED: DEXTROSE (50%) 50ML SYRG IV SCH (20:00)
[2020-05-08] MEDS ORDERED: [UNRECOGNIZED DRUG - OTHER] IV NR ×7 (20:00)
[2020-05-08] MEDS ORDERED: FAT EMULSION IV NR ×7 (20:00)
[2020-05-08] MEDS ORDERED: SODIUM CHLORIDE IV NR ×7 (20:00)
[2020-05-08] MEDS ORDERED: SODIUM PHOSPHATES IV NR ×7 (20:00)
[2020-05-09] MEDS ORDERED: InsuLIN REG 1unit/0.01ml Soln (100units/ml) SC SCH
[2020-05-09] MEDS ORDERED: ACCU-CHEK COMFORT CURVE STRIP VI SCH
== END 2020-05-08 19:00 | disposition short-term general hospital (02) | DRG 375 ==
LOC: EDUNIT# 21:31 → EDBD 21:31 → ER 21:34 → OVERFLOW 21:35
PROVIDERS: ADMIT Internal Medicine Cardiovascular Disease; ATTEND Internal Medicine Cardiovascular Disease
DX: C18.9 Malignant neoplasm of colon, unspecified (principal); C78.7 Secondary malignant neoplasm of liver and intrahepatic bile duct; K56.600 Partial intestinal obstruction, unspecified as to cause; E11.9 Type 2 diabetes mellitus without complications; E78.5 Hyperlipidemia, unspecified; I10 Essential (primary) hypertension; I25.10 Atherosclerotic heart disease of native coronary artery without angina pectoris; Z80.9 Family history of malignant neoplasm, unspecified; Z82.49 Family history of ischemic heart disease and other diseases of the circulatory system; Z85.038 Personal history of other malignant neoplasm of large intestine; Z93.3 Colostomy status; Z92.21 Personal history of antineoplastic chemotherapy; Z20.828 Contact with and (suspected) exposure to other viral communicable diseases
CPT/HCPCS: 36415; 71260; 74176; 80053; 82040; 83735; 84100; 84478; 85025; 85610; 85730; 87426; 93005; G0378; J1885; J2405; J7131

== ENCOUNTER → 2020-06-18 | Outpatient (CLI) | payer MEDICARE, BC | END | disposition home or self-care (01) | LOC: Rad HDHVI 14:05 | PROVIDERS: ATTEND Internal Medicine Cardiovascular Disease | DX: I50.33 Acute on chronic diastolic (congestive) heart failure (principal); R06.02 Shortness of breath | CPT/HCPCS: 93306 ==

== ENCOUNTER → 2020-07-04 | Outpatient (CLI) | payer MEDICARE, BC | END | disposition home or self-care (01) | LOC: XY 07:34 | DX: C18.9 Malignant neoplasm of colon, unspecified (principal); C78.7 Secondary malignant neoplasm of liver and intrahepatic bile duct | CPT/HCPCS: 78306; A9503 ==

== ENCOUNTER → 2020-07-17 | Outpatient (CLI) | payer MEDICARE, BC | END | disposition home or self-care (01) | LOC: Rad HDHVI 08:00 | PROVIDERS: ATTEND Internal Medicine Cardiovascular Disease | DX: E78.5 Hyperlipidemia, unspecified (principal); M79.609 Pain in unspecified limb | CPT/HCPCS: 93971 ==

== ENCOUNTER → 2020-08-20 | Outpatient (CLI) | payer MEDICARE, BC ==
[~2020-08-20] MED LIST changes: +MULTIPLE VIT 10 ML IV ONE; +MVI in SODIUM CHLORIDE 0.9% 500 ML IVB ONE
[2020-08-20 13:05] VITALS: BP 98/65
[2020-08-20 15:41] VITALS: BP 98/57
[2020-08-20 15:43] LABS: Hematocrit 28.5 % (41.0-53.0); Hemoglobin 9.3 g/dL (13.5-17.5); Mean Corpuscular Hemoglobin 26.8 pg (28.0-32.0); Mean Corpuscular Hgb Conc. 32.5 g/dL (32.0-36.0); Mean Corpuscular Volume 82.6 fL (80.0-100.0); Platelet Count (auto) 385 10^3/uL (140-450); Red Blood Cells 3.45 10^6/uL (4.5-5.90); Red Cell Distribution Width 18.5 % (11.8-14.3); White Blood Cell 3.9 10^3/uL (4.4-10.8)
[2020-08-20 15:48] LABS: Basophils % (manual) 0 (0.0-2.0); Blast Cells 0; Myelocytes % 0; Promyelocytes % 0; Reactive Lymphocytes 0
[2020-08-20 15:59] LABS: Calcium 9.1 mg/dL (8.5-10.1); Potassium 4.4 mmol/L (3.5-5.1)
[2020-08-20 16:01] LABS: BUN/Creatinine Ratio 15.6
[2020-08-20 16:08] LABS: Urine Blood Negative /uL (Negative); Urine Specific Gravity 1.027 (1.001-1.035)
[2020-08-20 18:43] LABS: Band Neutrophils % (manual) 9; Lymphocytes % (manual) 21 (10.0-50.0)
[2020-08-20 18:44] LABS: Eosinophils % (manual) 2 (0-7); Metamyelocytes % 1; Monocytes % (manual) 33 (0-12)
== END | disposition home or self-care (01) ==
LOC: Rad HDHVI 13:18
PROVIDERS: ATTEND Internal Medicine Cardiovascular Disease
DX: E86.0 Dehydration (principal); R06.02 Shortness of breath; E78.5 Hyperlipidemia, unspecified; Z85.038 Personal history of other malignant neoplasm of large intestine
CPT/HCPCS: 36415; 71046; 80048; 81003; 85007; 85027; 96365; 96366; G0463; J1642; J3411; J3475; J7040

== ENCOUNTER → 2020-09-05 | Outpatient (CLI) | payer MEDICARE, BC ==
[2020-09-05 08:00] VITALS: BP 102/58
[2020-09-05 10:00] VITALS: BP 90/48
[2020-09-05 10:33] VITALS: BP 90/52
== END | disposition home or self-care (01) ==
LOC: CHF HDHVI 08:01
PROVIDERS: ATTEND Internal Medicine Cardiovascular Disease
DX: E86.0 Dehydration (principal); C78.7 Secondary malignant neoplasm of liver and intrahepatic bile duct; E78.5 Hyperlipidemia, unspecified; Z85.038 Personal history of other malignant neoplasm of large intestine
CPT/HCPCS: 82378; 96365; 96366; G0463; J1642; J7040

== ENCOUNTER → 2020-10-01 | Outpatient (CLI) | payer MEDICARE, BC ==
[~2020-10-01] VITALS: Ht 30.5 cm; Wt 0.5 kg
[2020-10-01 12:29] VITALS: BP 94/58
[2020-10-01 15:16] VITALS: BP 82/47
== END | disposition home or self-care (01) ==
LOC: CHF HDHVI 12:41
PROVIDERS: ATTEND Internal Medicine Cardiovascular Disease
DX: E86.0 Dehydration (principal); E78.5 Hyperlipidemia, unspecified; R06.02 Shortness of breath; Z85.038 Personal history of other malignant neoplasm of large intestine
CPT/HCPCS: 96365; 96366; G0463; J1642; J3411; J3475; J7040

== ENCOUNTER 2020-10-11 14:26 | Inpatient (IN) | payer MEDICARE, BC ==
[~2020-10-11] VITALS: Ht 180.3 cm; Wt 87.6 kg
[2020-10-11] VITALS (14 sets, daily range): BP systolic 90–146; BP diastolic 49–71
[~2020-10-11 14:26] MED LIST changes: -MULTIPLE VIT 10 ML IV ONE; -MVI in SODIUM CHLORIDE 0.9% 500 ML IVB ONE
[2020-10-11] MEDS ORDERED: ONDANSETRON HCL 4 MG/2 ML VIAL IM ONE (15:00)
[2020-10-11] MEDS ORDERED: MORPHINE SULFATE 4 MG/ML SYR/VIAL IV ONE (15:00)
[2020-10-11] MEDS ORDERED: SODIUM CHLORIDE 0.9% 1,000 ML IV ONE (15:15)
[2020-10-11 15:41] LABS: Basophils # (auto) 0 10 ^3/uL (0-0.2); Eosinophils # (auto) 0.1 10 ^3/uL (0-0.8); Lymphocytes # (auto) 0.8 10 ^3/uL (0.4-5.4); Monocytes # (auto) 0.1 10 ^3/uL (0-1.3)
[2020-10-11 15:43] LABS: Basophils % (auto) 0.3 % (0.0-2.0); Eosinophils % (auto) 2.2 % (0.0-7.0); Hematocrit 34.5 % (41.0-53.0); Hemoglobin 10.8 g/dL (13.5-17.5); Lymphocytes % (auto) 24.8 % (10.0-50.0); Mean Corpuscular Hemoglobin 24.5 pg (28.0-32.0); Mean Corpuscular Hgb Conc. 31.2 g/dL (32.0-36.0); Mean Corpuscular Volume 78.7 fL (80.0-100.0); Monocytes % (auto) 2.9 % (0.0-12.0); Neutrophils # (auto) 2.2 10 ^3/uL (1.6-8.6); Neutrophils % (auto) 69.8 % (37.0-80.0); Nucleated Red Blood Cells % 0.1 %; Platelet Count (auto) 349 10^3/uL (140-450); Red Blood Cells 4.38 10^6/uL (4.5-5.90); Red Cell Distribution Width 19.5 % (11.8-14.3); White Blood Cell 3.2 10^3/uL (4.4-10.8)
[2020-10-11 16:00] LABS: Albumin 3.2 g/dL (3.4-5.0); Calcium 8.6 mg/dL (8.5-10.1); Magnesium 2.8 mg/dL (1.6-2.6); Potassium 4.5 mmol/L (3.5-5.1)
[2020-10-11 16:03] LABS: BUN/Creatinine Ratio 23.9; Bilirubin, Total 0.4 mg/dL (0.2-1.0); Total Protein 6.8 g/dL (6.4-8.2)
[2020-10-11 16:04] LABS: INR 1.18 (0.9-1.15); Partial Thromboplastin Time 26.2 sec (23.0-31.2)
[2020-10-11] MEDS: NOREPINEPHRINE 8 MG/250ML KIT 250 ML IV SCH (17:03)
[2020-10-11] MEDS ORDERED: NITROGLYCERIN 0.4 MG SL TAB SL PRN (17:15)
[2020-10-11] MEDS ORDERED: HYDROmorphone HCL 2 MG/ML VL IV PRN (17:15)
[2020-10-11] MEDS ORDERED: PIPERACILLIN-TAZO 4.5GM 100 ML IV ONE (17:15)
[2020-10-11] MEDS ORDERED: METOCLOPRAMIDE HCL 5MG/ml INJ 2ml VIAL IV PRN (17:15)
[2020-10-11] MEDS: SODIUM CHLORIDE 0.9% 1,000 ML IV SCH (18:08)
[2020-10-11 18:10] LABS: Urine Bacteria NONE SEEN /hpf (None Seen); Urine Blood Negative /uL (Negative); Urine Specific Gravity 1.014 (1.001-1.035); Urine WBC 3 /hpf (0 - 3)
[2020-10-11] MEDS: DOPamine 1600MCG/ML D5W 250 ML IV SCH (18:18)
[2020-10-11] MEDS ORDERED: TPN PER PHARMACY 0 ML IV SCH (18:45)
[2020-10-11] MEDS ORDERED: VANCOMYCIN 1GM/250ML 250 ML IV ONE (20:00)
[2020-10-12] VITALS (66 sets, daily range): BP systolic 86–129; BP diastolic 46–69
[2020-10-12] MEDS: SODIUM CHLORIDE 0.9% 1,000 ML IV SCH ×3 (02:49→21:15)
[2020-10-12 03:59] LABS: Basophils # (auto) 0 10 ^3/uL (0-0.2); Eosinophils # (auto) 0.1 10 ^3/uL (0-0.8); Hemoglobin 10.9 g/dL (13.5-17.5); Lymphocytes # (auto) 0.4 10 ^3/uL (0.4-5.4); Monocytes # (auto) 0.1 10 ^3/uL (0-1.3); Neutrophils # (auto) 0.7 10 ^3/uL (1.6-8.6); Neutrophils % (auto) 52.7 % (37.0-80.0)
[2020-10-12 04:01] LABS: Basophils % (auto) 1.4 % (0.0-2.0); Eosinophils % (auto) 5.6 % (0.0-7.0); Hematocrit 34.6 % (41.0-53.0); Mean Corpuscular Hemoglobin 24.5 pg (28.0-32.0); Mean Corpuscular Hgb Conc. 31.6 g/dL (32.0-36.0); Mean Corpuscular Volume 77.8 fL (80.0-100.0); Monocytes % (auto) 7.3 % (0.0-12.0); Nucleated Red Blood Cells % 0.2 %; Platelet Count (auto) 351 10^3/uL (140-450); Red Blood Cells 4.45 10^6/uL (4.5-5.90); Red Cell Distribution Width 19.8 % (11.8-14.3)
[2020-10-12] MEDS: MORPHINE SULF INJ 2 MG/ML SYRINGE 1ML IV PRN ×3 (04:10→20:45)
[2020-10-12 04:20] LABS: White Blood Cell 1.3 10^3/uL (4.4-10.8)
[2020-10-12 04:27] LABS: Calcium 8.2 mg/dL (8.5-10.1); Magnesium 2.5 mg/dL (1.6-2.6); Potassium 4.4 mmol/L (3.5-5.1)
[2020-10-12 04:33] LABS: BUN/Creatinine Ratio 22.4; Bilirubin, Total 0.6 mg/dL (0.2-1.0); Phosphorus 2.4 mg/dL (2.5-4.90); Pre Albumin 24.3 mg/dL (20.0-40.0); Total Protein 6.3 g/dL (6.4-8.2)
[2020-10-12] MEDS: ACCU-CHEK COMFORT CURVE STRIP VI SCH ×3 (06:26→20:00)
[2020-10-12] MEDS: InsuLIN REG 1unit/0.01ml Soln (100units/ml) SC SCH ×3 (06:26→21:01)
[2020-10-12] MEDS: DOPamine 1600MCG/ML D5W 250 ML IV SCH (08:29)
[2020-10-12] MEDS: NOREPINEPHRINE 8 MG/250ML KIT 250 ML IV SCH (16:30)
[2020-10-12] MEDS ORDERED: PPN PER PHARMACY IV NR ×8 (20:00)
[2020-10-12] MEDS ORDERED: DEXTROSE (50%) 50ML SYRG IV SCH ×2 (20:00)
[2020-10-12] MEDS: MUPIROCIN 2% OINT 15gm or 22gm EACHNOSTRI SCH (20:45)
[2020-10-13] VITALS (73 sets, daily range): BP systolic 56–145; BP diastolic 25–83
[2020-10-13] MEDS: DOPamine 1600MCG/ML D5W 250 ML IV SCH ×3 (01:01→23:15)
[2020-10-13] MEDS: InsuLIN REG 1unit/0.01ml Soln (100units/ml) SC SCH ×5 (01:56→21:13)
[2020-10-13 04:45] LABS: Albumin 2.9 g/dL (3.4-5.0); Magnesium 2.5 mg/dL (1.6-2.6)
[2020-10-13 04:49] LABS: BUN/Creatinine Ratio 26.5; Bilirubin, Total 0.6 mg/dL (0.2-1.0); Phosphorus 1.8 mg/dL (2.5-4.90); Total Protein 6.3 g/dL (6.4-8.2)
[2020-10-13] MEDS: ACCU-CHEK COMFORT CURVE STRIP VI SCH ×4 (05:19→17:11)
[2020-10-13] MEDS: SODIUM CHLORIDE 0.9% 1,000 ML IV SCH ×2 (08:30→21:18)
[2020-10-13] MEDS: MUPIROCIN 2% OINT 15gm or 22gm EACHNOSTRI SCH ×2 (09:46→21:07)
[2020-10-13] MEDS ORDERED: SODIUM PHOSPHATES 20 MEQ in SODIUM CHL 0.9% 100 ML IV ONE (10:00)
[2020-10-13] MEDS: MORPHINE SULF INJ 2 MG/ML SYRINGE 1ML IV PRN (15:47)
[2020-10-13] MEDS: NOREPINEPHRINE 8 MG/250ML KIT 250 ML IV SCH (16:30)
[2020-10-13] MEDS ORDERED: PPN PER PHARMACY IV NR ×10 (20:00)
[2020-10-14] VITALS (74 sets, daily range): BP systolic 60–164; BP diastolic 21–86
[2020-10-14 04:18] LABS: Albumin 3.2 g/dL (3.4-5.0); Calcium 8.9 mg/dL (8.5-10.1); Magnesium 2.4 mg/dL (1.6-2.6); Potassium 3.3 mmol/L (3.5-5.1)
[2020-10-14 04:21] LABS: BUN/Creatinine Ratio 19.7; Bilirubin, Total 0.6 mg/dL (0.2-1.0); Phosphorus 2.9 mg/dL (2.5-4.90); Total Protein 7.2 g/dL (6.4-8.2)
[2020-10-14] MEDS: ACCU-CHEK COMFORT CURVE STRIP VI SCH ×4 (06:00→18:05)
[2020-10-14] MEDS: InsuLIN REG 1unit/0.01ml Soln (100units/ml) SC SCH ×4 (06:00→20:58)
[2020-10-14] MEDS ORDERED: RIV15T PO (06:09)
[2020-10-14] MEDS ORDERED: SOTA120T39 PO (06:09)
[2020-10-14] MEDS ORDERED: FAMO20TA10 PO (06:09)
[2020-10-14] MEDS ORDERED: SITA100T7 PO (06:09)
[2020-10-14] MEDS: POTASSIUM CHL 20MEQ/100ML 100 ML IV SCH ×2 (10:00→13:30)
[2020-10-14] MEDS: MUPIROCIN 2% OINT 15gm or 22gm EACHNOSTRI SCH ×2 (10:00→21:10)
[2020-10-14] MEDS: SODIUM CHLORIDE 0.9% 1,000 ML IV SCH ×2 (11:00→21:10)
[2020-10-14] MEDS: DOPamine 1600MCG/ML D5W 250 ML IV SCH (12:06)
[2020-10-14] MEDS ORDERED: SODIUM CHLORIDE 0.9% 500 ML IV ONE (14:30)
[2020-10-14] MEDS: NOREPINEPHRINE 8 MG/250ML KIT 250 ML IV SCH (16:30)
[2020-10-14] MEDS ORDERED: PPN PER PHARMACY IV NR ×12 (20:00)
[2020-10-15] VITALS (59 sets, daily range): BP systolic 65–138; BP diastolic 22–72
[2020-10-15] MEDS: ACCU-CHEK COMFORT CURVE STRIP VI SCH ×4 (00:18→17:33)
[2020-10-15] MEDS: InsuLIN REG 1unit/0.01ml Soln (100units/ml) SC SCH ×3 (04:10→17:46)
[2020-10-15 04:53] LABS: Potassium 3.3 mmol/L (3.5-5.1)
[2020-10-15 05:02] LABS: Albumin 2.7 g/dL (3.4-5.0); BUN/Creatinine Ratio 20.7; Bilirubin, Total 0.4 mg/dL (0.2-1.0); Calcium 8.5 mg/dL (8.5-10.1); Magnesium 2.3 mg/dL (1.6-2.6); Phosphorus 2.5 mg/dL (2.5-4.90); Total Protein 6.2 g/dL (6.4-8.2)
[2020-10-15] MEDS: DOPamine 1600MCG/ML D5W 250 ML IV SCH (08:00)
[2020-10-15] MEDS ORDERED: POTASSIUM PHOSPHATE 44 MEQ in D5W 5% 250 ML IV ONE (08:30)
[2020-10-15] MEDS: MUPIROCIN 2% OINT 15gm or 22gm EACHNOSTRI SCH ×2 (09:00→22:41)
[2020-10-15] MEDS: POTASSIUM CHL 20 Meq TABLET PO SCH (10:39)
[2020-10-15] MEDS: SODIUM CHLORIDE 0.9% 1,000 ML IV SCH ×2 (10:45→23:49)
[2020-10-15] MEDS ORDERED: DIGOXIN (250MCG/ML) 2 ML AMPULE IV SCH (11:15)
[2020-10-15] MEDS ORDERED: POTASSIUM CHL 20MEQ/100ML 100 ML IV SCH (11:15)
[2020-10-15] MEDS: NOREPINEPHRINE 8 MG/250ML KIT 250 ML IV SCH ×2 (16:10→23:51)
[2020-10-15] MEDS: POTASSIUM CHL 20MEQ/100ML 100 ML IV SCH ×2 (17:09→21:28)
[2020-10-15] MEDS ORDERED: DIGOXIN (250MCG/ML) 2 ML AMPULE ONE (17:30)
[2020-10-15] MEDS: DIGOXIN (250MCG/ML) 2 ML AMPULE IV SCH ×2 (17:55→18:16)
[2020-10-15] MEDS ORDERED: LIDOCAINE 1% (LOCAL ANESTH.) PF 5ml SDV ID ONE (19:15)
[2020-10-15] MEDS: PPN PER PHARMACY IV NR ×12 (21:05)
[2020-10-15] MEDS: SODIUM CHLOR 0.9% PF (SALINE LOCK) 10ML VIAL/SYR IV SCH (22:41)
[2020-10-16] VITALS (87 sets, daily range): BP systolic 76–134; BP diastolic 36–75
[2020-10-16] MEDS: ACCU-CHEK COMFORT CURVE STRIP VI SCH ×5 (00:15→23:37)
[2020-10-16] MEDS: InsuLIN REG 1unit/0.01ml Soln (100units/ml) SC SCH ×5 (00:15→23:28)
[2020-10-16] MEDS: DOPamine 1600MCG/ML D5W 250 ML IV SCH ×2 (02:14→19:07)
[2020-10-16 05:02] LABS: Albumin 2.6 g/dL (3.4-5.0); BUN/Creatinine Ratio 11.9; Bilirubin, Total 0.5 mg/dL (0.2-1.0); Magnesium 2.1 mg/dL (1.6-2.6); Phosphorus 2.8 mg/dL (2.5-4.90)
[2020-10-16 08:48] LABS: Lymphocytes # (auto) 1.3 10 ^3/uL (0.4-5.4); Monocytes # (auto) 0.8 10 ^3/uL (0-1.3); Monocytes % (auto) 14.6 % (0.0-12.0); Neutrophils # (auto) 3.3 10 ^3/uL (1.6-8.6); White Blood Cell 5.8 10^3/uL (4.4-10.8)
[2020-10-16 08:50] LABS: Basophils # (auto) 0.1 10 ^3/uL (0-0.2); Basophils % (auto) 0.9 % (0.0-2.0); Eosinophils # (auto) 0.3 10 ^3/uL (0-0.8); Eosinophils % (auto) 4.7 % (0.0-7.0); Hematocrit 31.9 % (41.0-53.0); Hemoglobin 10.3 g/dL (13.5-17.5); Lymphocytes % (auto) 22.1 % (10.0-50.0); Mean Corpuscular Hemoglobin 24.8 pg (28.0-32.0); Mean Corpuscular Hgb Conc. 32.2 g/dL (32.0-36.0); Mean Corpuscular Volume 77.2 fL (80.0-100.0); Neutrophils % (auto) 57.7 % (37.0-80.0); Nucleated Red Blood Cells % 0.3 %; Platelet Count (auto) 285 10^3/uL (140-450); Red Blood Cells 4.14 10^6/uL (4.5-5.90); Red Cell Distribution Width 19.8 % (11.8-14.3)
[2020-10-16] MEDS: MUPIROCIN 2% OINT 15gm or 22gm EACHNOSTRI SCH ×2 (11:13→20:53)
[2020-10-16] MEDS: SODIUM CHLOR 0.9% PF (SALINE LOCK) 10ML VIAL/SYR IV SCH ×2 (11:13→20:54)
[2020-10-16] MEDS: POTASSIUM CHL 20 Meq TABLET PO SCH (11:13)
[2020-10-16] MEDS: SODIUM CHLORIDE 0.9% 1,000 ML IV SCH ×2 (11:30→23:37)
[2020-10-16] MEDS: PPN PER PHARMACY IV NR ×12 (19:52)
[2020-10-16] MEDS ORDERED: PPN PER PHARMACY IV NR ×12 (20:00)
[2020-10-16] MEDS: NEOMYCIN-POLYM-GRAM OPTH(EYE) SOL 10ML EACHEYE SCH (20:53)
[2020-10-16] MEDS: FLUDROCORTISONE ACETATE 0.1 MG TAB PO SCH (20:54)
[2020-10-16] MEDS: AMIODARONE HCL 200 MG TAB PO SCH (20:54)
[2020-10-17] VITALS (63 sets, daily range): BP systolic 73–136; BP diastolic 37–73
[2020-10-17] MEDS: NOREPINEPHRINE 8 MG/250ML KIT 250 ML IV SCH (02:34)
[2020-10-17 04:33] LABS: Albumin 2.5 g/dL (3.4-5.0); Calcium 8.4 mg/dL (8.5-10.1); Magnesium 2.2 mg/dL (1.6-2.6); Potassium 4.1 mmol/L (3.5-5.1)
[2020-10-17 04:36] LABS: BUN/Creatinine Ratio 14.8; Bilirubin, Total 0.3 mg/dL (0.2-1.0); Phosphorus 2.3 mg/dL (2.5-4.90); Total Protein 5.7 g/dL (6.4-8.2)
[2020-10-17] MEDS: InsuLIN REG 1unit/0.01ml Soln (100units/ml) SC SCH ×3 (06:05→18:53)
[2020-10-17] MEDS: ACCU-CHEK COMFORT CURVE STRIP VI SCH ×3 (06:06→18:00)
[2020-10-17] MEDS: NEOMYCIN-POLYM-GRAM OPTH(EYE) SOL 10ML EACHEYE SCH ×2 (10:14→21:21)
[2020-10-17] MEDS: POTASSIUM CHL 20 Meq TABLET PO SCH (10:15)
[2020-10-17] MEDS: AMIODARONE HCL 200 MG TAB PO SCH ×2 (10:15→21:21)
[2020-10-17] MEDS: SODIUM CHLOR 0.9% PF (SALINE LOCK) 10ML VIAL/SYR IV SCH ×2 (10:15→21:21)
[2020-10-17] MEDS: MUPIROCIN 2% OINT 15gm or 22gm EACHNOSTRI SCH (10:15)
[2020-10-17] MEDS: FLUDROCORTISONE ACETATE 0.1 MG TAB PO SCH ×2 (10:15→21:21)
[2020-10-17] MEDS: DOPamine 1600MCG/ML D5W 250 ML IV SCH (10:21)
[2020-10-17] MEDS ORDERED: SODIUM PHOSPHATES 20 MEQ in SODIUM CHL 0.9% 100 ML IV ONE (11:30)
[2020-10-17] MEDS: SODIUM CHLORIDE 0.9% 1,000 ML IV SCH (12:30)
[2020-10-17] MEDS ORDERED: SODIUM CHLORIDE 0.9% 500 ML IV ONE (17:15)
[2020-10-17] MEDS ORDERED: TPN PER PHARMACY IV NR ×10 (20:00)
[2020-10-18] VITALS: BP 94/61
[2020-10-18] MEDS: InsuLIN REG 1unit/0.01ml Soln (100units/ml) SC SCH (00:04)
[2020-10-18] MEDS: ACCU-CHEK COMFORT CURVE STRIP VI SCH (00:04)
== END 2020-10-18 00:40 | disposition home or self-care (01) | DRG 389 ==
LOC: ER 14:26 → ICU WEST 17:13
PROVIDERS: ADMIT Internal Medicine Cardiovascular Disease; ATTEND Internal Medicine Cardiovascular Disease
PROC: 0D9670Z Drainage of Stomach with Drainage Device, Via Natural or Artificial Opening (ICD-10-PCS; principal; 2020-10-12)
PROC: 02HV33Z Insertion of Infusion Device into Superior Vena Cava, Percutaneous Approach (ICD-10-PCS; 2020-10-15)
PROC: B548ZZA Ultrasonography of Superior Vena Cava, Guidance (ICD-10-PCS; 2020-10-15)
DX: K56.699 Other intestinal obstruction unspecified as to partial versus complete obstruction (principal); E44.1 Mild protein-calorie malnutrition; D61.818 Other pancytopenia; C18.9 Malignant neoplasm of colon, unspecified; C78.7 Secondary malignant neoplasm of liver and intrahepatic bile duct; R64 Cachexia; D70.1 Agranulocytosis secondary to cancer chemotherapy; E78.5 Hyperlipidemia, unspecified; I25.10 Atherosclerotic heart disease of native coronary artery without angina pectoris; E11.40 Type 2 diabetes mellitus with diabetic neuropathy, unspecified; I10 Essential (primary) hypertension; I48.91 Unspecified atrial fibrillation; Z20.822 Contact with and (suspected) exposure to COVID-19; K21.9 Gastro-esophageal reflux disease without esophagitis; K80.20 Calculus of gallbladder without cholecystitis without obstruction; Z85.038 Personal history of other malignant neoplasm of large intestine; Z93.3 Colostomy status; Z82.49 Family history of ischemic heart disease and other diseases of the circulatory system; Z80.1 Family history of malignant neoplasm of trachea, bronchus and lung; Z83.3 Family history of diabetes mellitus; Z92.21 Personal history of antineoplastic chemotherapy; Z90.49 Acquired absence of other specified parts of digestive tract; Z95.5 Presence of coronary angioplasty implant and graft; Z68.27 Body mass index [BMI] 27.0-27.9, adult
CPT/HCPCS: 36415; 36569; 71045; 74176; 76700; 80053; 81001; 82040; 82962; 83690; 83735; 84100; 84478; 85025; 85610; 85730; 86850; 86900; 86901; 87081; 87426; 93005; 96365; 96367; 96375; G0378; J1642; J1815; J2405; J2543; J3480; J7060

== ENCOUNTER → 2020-12-12 | Outpatient (CLI) | payer MEDICARE, BC ==
[~2020-12-12] MED LIST changes: +FAMO20TA10 PO; +RIV15T PO; +SITA100T7 PO; +SOTA120T39 PO
== END | disposition home or self-care (01) ==
LOC: Rad HDHVI 12:03
PROVIDERS: ATTEND Internal Medicine Cardiovascular Disease
DX: R05 Cough (principal); M77.8 Other enthesopathies, not elsewhere classified; M89.40 Other hypertrophic osteoarthropathy, unspecified site; M85.80 Other specified disorders of bone density and structure, unspecified site
CPT/HCPCS: 71046

== ENCOUNTER 2020-12-19 03:55 | Inpatient (IN) | payer MEDICARE, BC ==
[~2020-12-19] VITALS: Ht 185.4 cm; Wt 86.7 kg
[2020-12-19 04:50] LABS: Hemoglobin 10.5 g/dL (13.5-17.5); White Blood Cell 4.9 10^3/uL (4.4-10.8)
[2020-12-19 04:52] LABS: Hematocrit 33.9 % (41.0-53.0); Mean Corpuscular Hemoglobin 22.5 pg (28.0-32.0); Mean Corpuscular Hgb Conc. 30.9 g/dL (32.0-36.0); Mean Corpuscular Volume 72.7 fL (80.0-100.0); Red Blood Cells 4.67 10^6/uL (4.5-5.90)
[2020-12-19 05:05] LABS: Basophils % (manual) 0 (0.0-2.0); Blast Cells 0; Metamyelocytes % 0; Promyelocytes % 0; Reactive Lymphocytes 0; Red Cell Distribution Width 23.2 % (11.8-14.3)
[2020-12-19] MEDS ORDERED: ACETAMINOPHEN 325 MG TAB PO ONE (05:30)
[2020-12-19] MEDS ORDERED: ACETAMINOPHEN 500 MG TAB PO ONE (05:34)
[2020-12-19 05:40] LABS: INR 1.26 (0.9-1.15)
[2020-12-19 05:52] LABS: Band Neutrophils % (manual) 28; Eosinophils % (manual) 1 (0-7); Lymphocytes % (manual) 21 (10.0-50.0); Monocytes % (manual) 17 (0-12); Myelocytes % 4
[2020-12-19 05:58] LABS: Lactic Acid w/Reflex 2.5 mmol/L (0.4-2.0)
[2020-12-19] MEDS ORDERED: SODIUM CHLORIDE 0.9% 1,000 ML IV ONE ×3 (06:30→11:15)
[2020-12-19 06:38] LABS: Albumin 2.7 g/dL (3.4-5.0); Anion Gap 10 (5-15); Blood Urea Nitrogen 13 mg/dL (7-18); Calcium 9.1 mg/dL (8.5-10.1); Carbon Dioxide 27 mmol/L (21-32); Chloride 107 mmol/L (98-107); Glucose 170 mg/dL (74-106); Lipase 120 U/L (73-393); Magnesium 2.4 mg/dL (1.6-2.6); Sodium 144 mmol/L (136-145)
[2020-12-19 06:44] LABS: Alanine Aminotransferase 46 U/L (16-61); Alkaline Phosphatase 288 U/L (45-117); Aspartate Aminotransferase 52 U/L (15-37); BUN/Creatinine Ratio 17.1; Bilirubin, Total 0.5 mg/dL (0.2-1.0); GFR African American 129 mL/min; GFR Non-African American 107 mL/min; Total Protein 7.1 g/dL (6.4-8.2)
[2020-12-19 06:46] LABS: Potassium 2.7 mmol/L (3.5-5.1)
[2020-12-19] MEDS ORDERED: POTASSIUM CHL 20MEQ/100ML 100 ML IV ONE (07:00)
[2020-12-19 07:22] LABS: Urine Bacteria NONE SEEN /hpf (None Seen); Urine Blood Negative /uL (Negative); Urine Specific Gravity 1.037 (1.001-1.035); Urine WBC 12 /hpf (0 - 3)
[2020-12-19] MEDS ORDERED: MAGNESIUM CITRATE SOLUTION 300 ML BTL PO ONE (11:15)
[2020-12-19] MEDS ORDERED: FAMOTIDINE 20 MG TAB PO ONE (14:15)
[2020-12-19] MEDS ORDERED: MORPHINE SULFATE INJECTION 2 MG/ML SYRG IV ONE (15:00)
[2020-12-19] MEDS ORDERED: HYDROmorphone HCL 2 MG/ML VL IV PRN (16:45)
[2020-12-19] MEDS ORDERED: ONDANSETRON HCL 4 MG/2 ML VIAL IV PRN (16:45)
[2020-12-19] MEDS ORDERED: MORPHINE SULFATE INJECTION 2 MG/ML SYRG IV PRN (16:45)
[2020-12-19] MEDS ORDERED: NITROGLYCERIN 0.4 MG SL TAB SL PRN (16:45)
[2020-12-19] MEDS: RIVAROXABAN 15 MG TAB PO SCH (18:24)
[2020-12-19] MEDS ORDERED: MAGNESIUM CITRATE SOLUTION 300 ML BTL PO SCH (20:00)
[2020-12-19] MEDS: FLUDROCORTISONE ACETATE 0.1 MG TAB PO SCH (21:59)
[2020-12-19] MEDS: FAMOTIDINE 20 MG TAB PO SCH (21:59)
[2020-12-19] MEDS: SOTALOL HCL 80 MG TAB PO SCH (21:59)
[2020-12-19 22:00] VITALS: BP 119/69
[2020-12-19 22:16] VITALS: BP 119/69
[2020-12-19] MEDS ORDERED: APOA10CA PO (22:34)
[2020-12-19] MEDS ORDERED: EMPA1TAB PO (22:34)
[2020-12-19] MEDS ORDERED: FLUD0.1T2 PO (22:34)
[2020-12-19] MEDS ORDERED: OMEP-434 PO (22:34)
[2020-12-20 05:00] VITALS: BP 145/97
[2020-12-20 09:00] VITALS: BP 109/70
[2020-12-20] MEDS: FAMOTIDINE 20 MG TAB PO SCH ×2 (10:03→22:10)
[2020-12-20] MEDS: SOTALOL HCL 80 MG TAB PO SCH ×2 (10:05→22:10)
[2020-12-20] MEDS: FLUDROCORTISONE ACETATE 0.1 MG TAB PO SCH ×2 (10:05→22:11)
[2020-12-20 13:10] VITALS: BP 109/59
[2020-12-20] MEDS ORDERED: POTASSIUM EFFERVESENT TAB 25 MEQ GT SCH (13:30)
[2020-12-20 14:44] LABS: Calcium 8.1 mg/dL (8.5-10.1); Potassium 3.3 mmol/L (3.5-5.1)
[2020-12-20] MEDS: POTASSIUM EFFERVESENT TAB 25 MEQ PO SCH ×2 (15:02→22:09)
[2020-12-20 17:00] VITALS: BP 112/67
[2020-12-20] MEDS: RIVAROXABAN 15 MG TAB PO SCH (18:17)
[2020-12-20 20:00] VITALS: BP 100/49
[2020-12-20 22:00] VITALS: BP 100/49
[2020-12-21 05:00] VITALS: BP 97/61
[2020-12-21 09:00] VITALS: BP 105/64
[2020-12-21] MEDS: POTASSIUM EFFERVESENT TAB 25 MEQ PO SCH (09:31)
[2020-12-21] MEDS: FAMOTIDINE 20 MG TAB PO SCH (09:32)
[2020-12-21] MEDS: FLUDROCORTISONE ACETATE 0.1 MG TAB PO SCH (09:32)
[2020-12-21 13:00] VITALS: BP 103/67
[2020-12-21] MEDS: SOTALOL HCL 80 MG TAB PO SCH (13:29)
[2020-12-21 15:18] VITALS: BP 107/68
[2020-12-21 17:00] VITALS: BP 119/71
== END 2020-12-21 18:00 | disposition home or self-care (01) | DRG 393 ==
LOC: ER 03:55 → EDBD 03:55 → WEST WING 16:44 → EAST 21:40
PROVIDERS: ADMIT Internal Medicine Cardiovascular Disease; ATTEND Internal Medicine Cardiovascular Disease
DX: K94.00 Colostomy complication, unspecified (principal); U07.1 COVID-19; K51.90 Ulcerative colitis, unspecified, without complications; K56.609 Unspecified intestinal obstruction, unspecified as to partial versus complete obstruction; E11.9 Type 2 diabetes mellitus without complications; E78.00 Pure hypercholesterolemia, unspecified; E87.6 Hypokalemia; I10 Essential (primary) hypertension; I25.10 Atherosclerotic heart disease of native coronary artery without angina pectoris; Z80.9 Family history of malignant neoplasm, unspecified; Z82.49 Family history of ischemic heart disease and other diseases of the circulatory system; Z83.3 Family history of diabetes mellitus; Z85.048 Personal history of other malignant neoplasm of rectum, rectosigmoid junction, and anus; Z90.49 Acquired absence of other specified parts of digestive tract; Z78.9 Other specified health status; Y83.3 Surgical operation with formation of external stoma as the cause of abnormal reaction of the patient, or of later complication, without mention of misadventure at the time of the procedure; Z85.038 Personal history of other malignant neoplasm of large intestine; K21.9 Gastro-esophageal reflux disease without esophagitis
CPT/HCPCS: 36415; 71045; 74018; 74176; 80048; 80053; 81001; 82728; 83605; 83690; 83735; 83880; 84484; 85007; 85027; 85610; 86141; 87426; 93005; 96361; 96374; G0378; J3480

== ENCOUNTER → 2021-02-13 | Outpatient (CLI) | payer MEDICARE, BC ==
[~2021-02-13] MED LIST changes: +APOA10CA PO; -CAPE1TAB11 PO; -CLOP75TA28 PO; +EMPA1TAB PO; +FLUD0.1T2 PO; +MULTIPLE VIT 10 ML IV ONE; +MVI in SODIUM CHLORIDE 0.9% 500 ML IVB ONE; +OMEP-434 PO; -ROSU1TAB12 PO; -ROSU5TAB5 PO
[2021-02-13 08:37] VITALS: BP 108/70
[2021-02-13 11:10] VITALS: BP 129/71
== END | disposition home or self-care (01) ==
LOC: Rad HDHVI 07:56
PROVIDERS: ATTEND Internal Medicine Cardiovascular Disease
DX: E86.0 Dehydration (principal); R53.83 Other fatigue; R53.1 Weakness; I10 Essential (primary) hypertension; I25.10 Atherosclerotic heart disease of native coronary artery without angina pectoris; E11.9 Type 2 diabetes mellitus without complications; K21.9 Gastro-esophageal reflux disease without esophagitis; E78.00 Pure hypercholesterolemia, unspecified; Z79.899 Other long term (current) drug therapy; Z85.038 Personal history of other malignant neoplasm of large intestine
CPT/HCPCS: 96365; 96366; G0463; J1642; J7040